=== PATIENT | male | born 1980 | race Caucasian/White ===

== ENCOUNTER 2019-07-05 14:19 | Emergency (ER) | payer OTHER ==
[~2019-07-05] VITALS: Ht 177.8 cm; Wt 70.3 kg
[2019-07-05] MEDS ORDERED: Zovirax800 MG PO (14:29)
[2019-07-05] MEDS ORDERED: HYDR1TAB94 PO (14:29)
[2019-07-05] MEDS ORDERED: METPRE4DP PO (14:29)
[2019-07-05] MEDS ORDERED: LIDO700A20 TOP (14:29)
== END 2019-07-05 14:27 | disposition home or self-care (01) ==
LOC: ER 14:19
DX: B02.9 Zoster without complications (principal)
CPT/HCPCS: 99282